=== PATIENT | female | born 1935 | race Caucasian/White ===

== ENCOUNTER 2017-11-28 12:54 | Observation (INO) ==
--- NOTE | 2017-11-28 13:29 | DR.GENAD ---
HPI - PCP Primary Care Physician: Christopher BUTLER - Complaint/Symptoms Chief Complaint:: PATIENT STATED THAT Christopher BUTLER OFFICE CALLED AND TOLD PATIENT COME TO THE ER DUE TO HER WBC BEING LOW SHE BELIEVES THAT IS WHAT THEY TOLD HER WAS GOING ON. PATIENT STATED THAT SHE IS WEAK. - Nurses notes reviewed Nurses Notes Review: Yes - Source History Provided: Patient - Mode of Arrival Mode of Arrival: Ambulatory - Timing Onset of Chief Complaint: 11/28/17 PMH - PMH Past Medical History: Yes Past Medical History: Hypertension Past Surgical History: Yes Surgical History: Hysterectomy, Other - Family History History of Family Medical Conditions: Yes Family Medical History: Cancer, [place], Coronary Artery Disease, Hypertension - Social History Does patient currently use any type of tobacco product: No Have you used tobacco products in the last 12 months: No Type of Tobacco Use: None Does any household member use tobacco: No Alcohol Use: None Do you use any recreational Drugs:: No Lives With: Significant Other Lives Where: Home - infectious screening In the last 2 months have you had wt loss of >10#?: NO Have you had fever, night sweats or hemotysis?: No Have you traveled outside the country in the last 6 months?: No Isolation: Standard ROS - Review of Systems Constitutional: No Symptoms Reported Eyes: No Symptoms Reported ENTM: No Symptoms Reported Respiratoy: No Symptoms Reported Cardiovascular: No Symptoms Reported Gastrointestinal/Abdominal: No Symptoms Reported Genitourinary: No Symptoms Reported Neurological: No Symptoms Reported Musculoskeletal: No Symptoms Reported Integumentary: No Symptoms Reported Hematologic/Lymphatic: No Symptoms Reported Endocrine: No Symptoms Reported Psychiatric: No Symptoms Reported All Other Systems: Reviewed and Negative PE - General Limitations: No Limitations General Appearance: Alert, In No Apparent Distress - Head Head Exam: Normal Inspection - Eyes Eye exam: Normal Appearance - ENT ENT Exam: Normal Exam - Neck Neck Exam: Normal Inspection - Chest Chest Inspection: Normal Inspection - Respiratory Respiratory Exam: Normal Lung Sounds Bilat - Cardiovascular Cardiovascular Exam: Regular Rate, Normal Rhythm, Normal Heart Sounds, +S1, +S2 - Abdominal Exam Abdominal Exam: Normal Inspection, Normal Bowel Sounds, Soft - Extremities Extremities Exam: Normal Inspection - Back Back Exam: Normal Inspection - Neurologic Neurological Exam: Alert, Oriented X3 - Psychiatric Psychiatric Exam: Normal Affect, Normal Mood - Skin Skin Exam: Warm, Dry, Intact, Normal Color - Vital Signs Vitals: Temperature 97.4 F Pulse Rate 77 Respiratory Rate 20 Blood Pressure [Right Arm] 134/63 Blood Pressure [Left Arm] 119/56 Blood Pressure 97/53 O2 Sat by Pulse Oximetry 96 ROR - Labs Reviewed Result Diagrams: 11/28/17 13:43 11/28/17 13:43 - Labs Reviewed Laboratory: WBC 11.9 X10^3/uL (3.6-10.0) H 11/28/17 13:43 RBC 4.91 X10^6/uL (3.5-5.4) 11/28/17 13:43 Hgb 13.8 g/dL (12.0-16.0) 11/28/17 13:43 Hct 40.3 % (36.0-47.0) 11/28/17 13:43 MCV 82.2 fL (80.0-100.0) 11/28/17 13:43 MCH 28.1 pg (27.0-34.0) 11/28/17 13:43 MCHC 34.2 g/dL (33.0-35.0) 11/28/17 13:43 RDW 15.3 % (11.6-16.5) 11/28/17 13:43 Plt Count 215 X10^3/uL (150.0-450.0) 11/28/17 13:43 Plt Count Comment Adequate (ADEQUATE) 11/28/17 13:43 MPV 8.1 fL (7.4-11.0) 11/28/17 13:43 Neut % (Auto) 78.8 % (42.0-75.0) H 11/28/17 13:43 Lymph % (Auto) 10.2 % (21.0-51.0) L 11/28/17 13:43 [place] % (Auto) 10.2 % (0.0-13.0) 11/28/17 13:43 Eos % (Auto) 0.5 % (0.9-2.9) L 11/28/17 13:43 Baso % (Auto) 0.3 % (0.2-1.0) 11/28/17 13:43 Neut # (Auto) 9.4 x10^3/uL (2.2-4.8) H 11/28/17 13:43 Lymph # (Auto) 1.2 X10^3/uL (1.3-2.9) L 11/28/17 13:43 [place] # (Auto) 1.2 x10^3/uL (0.3-0.8) H 11/28/17 13:43 Eos # (Auto) 0.1 x10^3/uL (0.0-0.2) 11/28/17 13:43 Baso # (Auto) 0.0 X10^3/uL (0.0-0.1) 11/28/17 13:43 Absolute Nucleated RBC 0.0 /100WBC 11/28/17 13:43 Total Counted 100 11/28/17 13:43 Neutrophils % (Manual) 82 % (39-76) H 11/28/17 13:43 Band Neutrophils % 2 % (0-10) 11/28/17 13:43 Lymphocytes % (Manual) 5 % (13-43) L 11/28/17 13:43 Monocytes % (Manual) 8 % (4-9) 11/28/17 13:43 Eosinophils % (Manual) 1 % (0-6) 11/28/17 13:43 Atypical Lymphocytes 2 11/28/17 13:43 Plt Morphology Comment Normal (NORMAL) 11/28/17 13:43 RBC Morphology Normal (NORMAL) 11/28/17 13:43 Sodium 125 mmol/L (136-145) L* 11/28/17 13:43 Corrected Sodium TNP 11/28/17 13:43 Potassium 4.8 mmol/L (3.5-5.1) 11/28/17 13:43 Chloride 91 mmol/L (98-107) L 11/28/17 13:43 Carbon Dioxide 23.9 mmol/L (21-32) 11/28/17 13:43 BUN 20 mg/dL (7-18) H 11/28/17 13:43 Creatinine 0.79 mg/dL (0.55-1.02) 11/28/17 13:43 Est GFR (MDRD) Af Amer > 60 (>60) 11/28/17 13:43 Est GFR (MDRD) Non-Af > 60 (>60) 11/28/17 13:43 Glucose 95 mg/dL (65-99) 11/28/17 13:43 Calcium 9.7 mg/dL (8.5-10.1) 11/28/17 13:43 Corrected Calcium 10.5 mg/dL (8.5-10.1) H 11/28/17 13:43 Total Bilirubin 0.70 mg/dL (0.2-1.0) 11/28/17 13:43 AST 23 Units/L (15-37) 11/28/17 13:43 ALT 26 Units/L (12-78) 11/28/17 13:43 Alkaline Phosphatase 70 Units/L (46-116) 11/28/17 13:43 Total Protein 7.1 g/dL (6.4-8.2) 11/28/17 13:43 Albumin 3.0 g/dL (3.4-5.0) L 11/28/17 13:43 Globulin 4.1 g/dL (2.5-4.5) 11/28/17 13:43 Albumin/Globulin Ratio 0.7 Ratio (1.1-2.1) L 11/28/17 13:43 - Diagnosis Discharge Problem: Hyponatremia, Leukocytopenia, unspecified, Leukocytosis - Discharge Plan Disposition: 09 ADMITTED INPATIENT Condition: Stable - Follow ups/Referrals Follow ups/Referrals: Stephen Coe [Primary Care Provider] - 3 days - Instructions Instructions: Hyponatremia, [id number]
[2017-11-28 13:51] LABS: BASOPHILS % (AUTO) 0.3 % (0.2-1.0); EOSINOPHILS # (AUTO) 0.1 x10^3/uL (0.0-0.2); EOSINOPHILS % (AUTO) 0.5 % (0.9-2.9); HEMATOCRIT 40.3 % (36.0-47.0); HEMOGLOBIN 13.8 g/dL (12.0-16.0); LYMPHOCYTES # (AUTO) 1.2 X10^3/uL (1.3-2.9); LYMPHOCYTES % (AUTO) 10.2 % (21.0-51.0); MEAN CORPUSCULAR HEMOGLOBIN 28.1 pg (27.0-34.0); MEAN CORPUSCULAR HGB CONC 34.2 g/dL (33.0-35.0); MEAN CORPUSCULAR VOLUME 82.2 fL (80.0-100.0); MEAN PLATELET VOLUME 8.1 fL (7.4-11.0); MONOCYTES # (AUTO) 1.2 x10^3/uL (0.3-0.8); MONOCYTES % (AUTO) 10.2 % (0.0-13.0); NEUTROPHILS # (AUTO) 9.4 x10^3/uL (2.2-4.8); NEUTROPHILS % (AUTO) 78.8 % (42.0-75.0); PLATELET COUNT 215 X10^3/uL (150.0-450.0); RED BLOOD COUNT 4.91 X10^6/uL (3.5-5.4); RED CELL DISTRIBUTION WIDTH 15.3 % (11.6-16.5); WHITE BLOOD COUNT 11.9 X10^3/uL (3.6-10.0)
[2017-11-28 14:00] LABS: BLOOD UREA NITROGEN 20 mg/dL (7-18); CALCIUM 9.7 mg/dL (8.5-10.1); CARBON DIOXIDE 23.9 mmol/L (21-32); CHLORIDE 91 mmol/L (98-107); CREATININE 0.79 mg/dL (0.55-1.02); eGFR NON BLACK RACES > 60 (>60)
[2017-11-28 14:04] LABS: ALANINE AMINOTRANSFERASE 26 Units/L (12-78); ALKALINE PHOSPHATASE 70 Units/L (46-116); ASPARTATE AMINO TRANSFERASE 23 Units/L (15-37); COR CA(FOR HYPOALB) 10.5 mg/dL (8.5-10.1); TOTAL PROTEIN 7.1 g/dL (6.4-8.2)
[2017-11-28 14:05] LABS: BAND NEUTROPHILS % 2 % (0-10)
[2017-11-28 14:06] LABS: PLATELET MORPHOLOGY COMMENT NORMAL (NORMAL)
[2017-11-28 14:07] LABS: SODIUM 125 mmol/L (136-145)
[2017-11-28] MEDS ORDERED: NS 1000 ML 1,000 ML IV ONE (15:07)
[2017-11-28] MEDS ORDERED: LEVAQUIN PREMIX IV 500 MG 500 MG/100 ML BAG IV ONE ×2 (15:22→16:07)
[2017-11-28] MEDS ORDERED: NS 1000 ML 1,000 ML ONE (15:25)
--- NOTE | 2017-11-28 16:12 | RAD ---
AP chest Indication: Follow-up pneumonia Comparison: 11/20/2017 Findings: Reticular nodular opacities are again suspected within the right mid and upper lung howeve r the previously described nodular opacity is not well visualized. Correlation with nonemergent foll ow-up chest CT is recommended for further evaluation. Calcified lymph nodes are noted within the lef t hilum and left mid lung. No new infiltrate is identified. No pleural effusion or pneumothorax. H eart size unchanged with calcified atherosclerotic disease of the aortic arch. There is elevation the right humeral head consistent with chronic right rotator cuff insufficiency/te ar. Impression: See above. Reported By:
[2017-11-28 19:11] VITALS: BMI 23.3
--- NOTE | 2017-11-28 19:12 | CT ---
CT head without contrast Indication: Pain after fall. Hematoma to the back of the head Technique: Axial images from the skullbase to the vertex without contrast. Coronal and sagittal refor mats are provided. Findings: There is no acute intracranial hemorrhage, mass or mass effect. No extra-axial fluid collec tion or abnormal area of hypoattenuation to suggest infarction seen. Ventricles and sulci are normal. Mild atrophy with ex vacuo ventricular and sulcal enlargement noted. Mild periventricular microangio deanna noted. Review of bone windows shows no osseous lesion. Paranasal sinuses and mastoid air cells are clear where visualized Impression: No acute intracranial hemorrhage Reported By:
[2017-11-28] MEDS: NEURONTIN CAP 300 MG PO SCH (20:25)
[2017-11-28] MEDS: KLONOPIN TAB 0.5 MG PO SCH (20:25)
[2017-11-28] MEDS: ZOCOR TAB 40 MG PO SCH (20:26)
[2017-11-28] MEDS: DUONEB 0.5 MG/3 MG NEB SCH (21:06)
[2017-11-29] MEDS: NS 1000 ML 1,000 ML IV SCH ×5 (02:56→17:40)
[2017-11-29] MEDS: DUONEB 0.5 MG/3 MG NEB SCH ×3 (05:30→20:43)
[2017-11-29 06:38] LABS: BASOPHILS % (AUTO) 0.3 % (0.2-1.0); EOSINOPHILS # (AUTO) 0.1 x10^3/uL (0.0-0.2); EOSINOPHILS % (AUTO) 1.2 % (0.9-2.9); HEMATOCRIT 34.4 % (36.0-47.0); HEMOGLOBIN 11.9 g/dL (12.0-16.0); LYMPHOCYTES # (AUTO) 1.1 X10^3/uL (1.3-2.9); LYMPHOCYTES % (AUTO) 14.9 % (21.0-51.0); MEAN CORPUSCULAR HGB CONC 34.7 g/dL (33.0-35.0); MEAN CORPUSCULAR VOLUME 83.6 fL (80.0-100.0); MEAN PLATELET VOLUME 8.5 fL (7.4-11.0); MONOCYTES # (AUTO) 0.9 x10^3/uL (0.3-0.8); MONOCYTES % (AUTO) 11.1 % (0.0-13.0); NEUTROPHILS # (AUTO) 5.6 x10^3/uL (2.2-4.8); NEUTROPHILS % (AUTO) 72.5 % (42.0-75.0); PLATELET COUNT 143 X10^3/uL (150.0-450.0); RED BLOOD COUNT 4.11 X10^6/uL (3.5-5.4); RED CELL DISTRIBUTION WIDTH 15.1 % (11.6-16.5); WHITE BLOOD COUNT 7.7 X10^3/uL (3.6-10.0)
[2017-11-29] MEDS ORDERED: NS 100 ML IV 100 ML IV ONE ×2 (06:42→09:33)
[2017-11-29 06:51] LABS: ALANINE AMINOTRANSFERASE 20 Units/L (12-78); ALBUMIN 2.4 g/dL (3.4-5.0); ALKALINE PHOSPHATASE 53 Units/L (46-116); ASPARTATE AMINO TRANSFERASE 19 Units/L (15-37); BLOOD UREA NITROGEN 13 mg/dL (7-18); CALCIUM 8.4 mg/dL (8.5-10.1); CARBON DIOXIDE 21.8 mmol/L (21-32); CHLORIDE 101 mmol/L (98-107); COR CA(FOR HYPOALB) 9.7 mg/dL (8.5-10.1); SODIUM 132 mmol/L (136-145); TOTAL PROTEIN 5.8 g/dL (6.4-8.2); eGFR NON BLACK RACES > 60 (>60)
--- NOTE | 2017-11-29 08:07 | CT ---
HISTORY: Subacute cough, pneumonia Study: CT chest with contrast Comparison: No prior CT, chest radiography performed November 28, 2017 and November 17, 2017 Technique: Multiple axial images of the chest were obtained from the thoracic inlet to the upper abdo men after the administration of IV contrast. AEC was utilized. Findings: The thyroid is unremarkable. There is no pericardial effusion observed. Diffuse vascular of alveolar calcifications are noted. The thoracic aorta is normal in its contour without evidence for aneurysm al dilatation or dissection. The central pulmonary arterial system does not demonstrate central fill ing defects to suggest pulmonary emboli. Evaluation of the lung parenchyma demonstrates a background of biapical centrilobular emphysema and bibasilar bronchiectasis. Additionally, there is enhancing bibasilar consolidation most consistent with subsegmental atelectasis. However, there is scattered g round-glass opacity with centrilobular nodules in the lung bases favored to represent superimposed at ypical bronchopneumonia and/or respiratory bronchiolitis. There is a calcified granuloma in the left lower lobe with associated calcified left hilar and mediastinal lymph nodes consistent with previous granulomatous disease. There is no effusion or pneumothorax. No destructive osseous lesions are see n. There is mild wedging of a mid thoracic vertebral body, likely chronic. Stones and/or sludge are n oted within the gallbladder. There are calcified granulomas within the spleen and liver. IMPRESSION: Background of COPD with superimposed bibasilar atypical bronchopneumonia and/or respiratory bronchiol itis. Nonemergent temporal surveillance CT chest without contrast is recommended in approximately 3-6 months given the background of nodularity to document stability/resolution after a trial of therapy and resolution of acute symptoms. Cholelithiasis and/or gallbladder sludge. Other Incidentals as above. Reported By:
[2017-11-29] MEDS ORDERED: FORTAZ or TAZICEF VIAL INJ ONE (09:34)
[2017-11-29] MEDS ORDERED: LEVAQUIN PREMIX IV 750 MG 750 MG/150 ML BAG IV ONE (09:34)
[2017-11-29] MEDS: FORTAZ or TAZICEF VIAL INJ 1 G in NS 100 ML IV + SPIKE MINIBAG* 100 ML IV SCH ×3 (09:39→21:00)
[2017-11-29] MEDS: TENORMIN PO SCH (09:40)
[2017-11-29] MEDS: NORVASC TAB 5 MG PO SCH (09:40)
[2017-11-29] MEDS ORDERED: LEVAQUIN PREMIX IV 750 MG 750 MG/150 ML BAG IV SCH (10:00)
[2017-11-29] MEDS: LEVAQUIN PREMIX IV 500 MG 500 MG/100 ML BAG IV SCH (12:12)
[2017-11-29] MEDS: NEURONTIN CAP 300 MG PO SCH (20:58)
[2017-11-29] MEDS: KLONOPIN TAB 0.5 MG PO SCH (20:58)
[2017-11-29] MEDS: ZOCOR TAB 40 MG PO SCH (20:58)
--- NOTE | 2017-11-29 22:57 | DR.H&P ---
H&P - History & Physical for Day of: H&P Date: 11/28/17 - Chief Complaint Chief Complaint: WEAKNESS, ABDOMINAL PAIN, FALLS, COUGH, CONFUSION - History of Present Illness History of Present Illness: IS A 82 YEAR OLD PATIENT OF OURS WHO PRESENTED TO THE EMERGENCY ROOM FOR COMPLAINTS OF GENERALIZED WEAKNESS, ABDOMINAL PAIN, AND FALLS. PATIENT WAS RECENTLY DISCHARGED FROM THE HOSPITAL FOR TREATMENT OF PNEUMONIA. PATIENTS DAUGHTER REPORTS THAT SHE CONTINUE WITH COUGH AND ALSO CONFUSION AT TIMES. ON ARRIVAL, VITALS WERE 97.4-77-20-96%-97/ 53. LABS WERE OBTAINED. ABNORMAL LAB VALUES INCLUDE THE FOLLOWING: WBC 11.9, SODIUM 125, CHLORIDE 91, BUN 20, ALBUMIN 3.0. A CHEST XRAY WAS OBTAINED AND REVEALED: Reticular nodular opacities are again suspected within the right mid and upper lung however the previously described nodular opacity is not well visualized. Correlation with nonemergent follow-up chest CT is recommended for further evaluation. Calcified lymph nodes are noted within the left hilum and left mid lung. No new infiltrate is identified. No pleural effusion or pneumothorax. Heart size unchanged with calcified atherosclerotic disease of the aortic arch. There is elevation the right humeral head consistent with chronic right rotator cuff insufficiency/tear. A BRAIN CT WAS OBTAINED AND REVEALED: There is no acute intracranial hemorrhage, mass or mass effect. No extra-axial fluid collection or abnormal area of hypoattenuation to suggest infarction seen. Ventricles and sulci are normal. Mild atrophy with ex vacuo ventricular and sulcal enlargement noted. Mild periventricular microangiopathy noted. Review of bone windows shows no osseous lesion. Paranasal sinuses and mastoid air cells are clear where visualized. PATIENT ADMITTED TO THE HOSPITAL FOR FURTHER EVALUATION AND TREATMENT OF HYPONATREMIA, LEUKOCYTOSIS, AND HYPOTENSION. SHE WAS STARTED ON NORMAL SALINE AT 125 ML/HR AND LEVAQUIN 500MG IV DAILY. WE PLAN TO FOLLOW UP WITH AM LABS AND CHEST CT WITH CONTAST AND CONTINUE TO MONITOR PATIENT. - Past Medical History Past Medical History: GERD, Hypertension - Past Surgical History Surgical History: Hysterectomy - Family History Family Medical History: Cancer, Coronary Artery Disease - Social History Does patient currently use any type of tobacco product: No Have you used tobacco products in the last 12 months: No Type of Tobacco Use: None Does any household member use tobacco: No Alcohol Use: None Drug Use: None - Medications Home Medications: codeine Allergy (Verified 11/17/17 13:20) - Review of Systems Constitutional: Weakness Eyes: No Symptoms Reported ENT: No Symptoms Reported Respiratory: Cough, Shortness of Breath Cardiovascular: No Symptoms Reported Gastrointestinal: Abdominal Pain Genitourinary: No Symptoms Reported Musculoskeletal: No Symptoms Reported Skin: No Symptoms Reported Neurological: Weakness - Physical Exam Vital Signs: Temperature 98.1 F Pulse Rate [Right] 77 Pulse Rate 74 Respiratory Rate 18 Blood Pressure [Right Arm] 126/60 Blood Pressure [Left Arm] 119/56 Blood Pressure 97/53 O2 Sat by Pulse Oximetry 95 Oriented: Normal Eyes: Normal Ear: Normal Nose: Normal Throat: Normal Respiratory: Diminished Throughout Cardiovascular: Normal. negative: S3, S4, Murmur : Normal Auscultation: Bowel Sounds: Normal Tenderness: Diffuse, Mild. negative: Rebound, Guarding, Rigidity Skin: Normal Musculoskeletal: Normal Psychiatric: Normal Mood Description: Calm Affect: Normal Speech Pattern: Clear - Assessment/Plan (1) Hyponatremia Status: Acute Plan: NORMAL SALINE AT 25ML/HR, CONTINUE TO MONITOR (2) Leukocytosis Status: Acute Plan: LEVAQUIN 500MG IV DAILY, CONTINUE TO MONITOR (3) Hypotension Qualifiers: Hypotension type: unspecified hypotension type Qualified Code(s): I95.9 - Hypotension, unspecified Status: Acute Plan: NORMAL SALINE AT 125ML/HR, CONTINUE TO MONITOR - Allergies Allergies/Adverse Reactions: Allergies Allergy/AdvReac Type Severity Reaction Status Date / Time codeine Allergy Verified 11/17/17 13:20
[2017-11-30] MEDS: NS 1000 ML 1,000 ML IV SCH ×2 (01:00→10:37)
[2017-11-30 04:05] LABS: BILIRUBIN,URINE NEGATIVE (NEGATIVE); BLOOD/HEMOGLOBIN,URINE NEGATIVE (NEGATIVE); GLUCOSE, URINE NEGATIVE (NEGATIVE); KETONES,URINE NEGATIVE (NEGATIVE); LEUKOCYTE ESTERASE ,URINE NEGATIVE (NEGATIVE); NITRITES,URINE NEGATIVE (NEGATIVE); PROTEIN,URINE NEGATIVE (NEGATIVE); UROBILINOGEN,URINE NORMAL (NORMAL)
[2017-11-30 04:08] LABS: APPEARANCE,URINE CLEAR (CLEAR); COLOR,URINE PALE YELLOW (YELLOW)
[2017-11-30] MEDS: DUONEB 0.5 MG/3 MG NEB SCH ×2 (04:19→05:13)
[2017-11-30] MEDS: FORTAZ or TAZICEF VIAL INJ 1 G in NS 100 ML IV + SPIKE MINIBAG* 100 ML IV SCH (05:00)
[2017-11-30 05:17] LABS: BASOPHILS % (AUTO) 0.5 % (0.2-1.0); EOSINOPHILS # (AUTO) 0.1 x10^3/uL (0.0-0.2); EOSINOPHILS % (AUTO) 1.4 % (0.9-2.9); HEMATOCRIT 33.2 % (36.0-47.0); HEMOGLOBIN 11.6 g/dL (12.0-16.0); LYMPHOCYTES # (AUTO) 1.3 X10^3/uL (1.3-2.9); LYMPHOCYTES % (AUTO) 17.9 % (21.0-51.0); MEAN CORPUSCULAR HEMOGLOBIN 29.1 pg (27.0-34.0); MEAN CORPUSCULAR HGB CONC 34.9 g/dL (33.0-35.0); MEAN CORPUSCULAR VOLUME 83.4 fL (80.0-100.0); MEAN PLATELET VOLUME 8.5 fL (7.4-11.0); MONOCYTES # (AUTO) 0.8 x10^3/uL (0.3-0.8); MONOCYTES % (AUTO) 11.5 % (0.0-13.0); NEUTROPHILS # (AUTO) 4.8 x10^3/uL (2.2-4.8); NEUTROPHILS % (AUTO) 68.7 % (42.0-75.0); PLATELET COUNT 129 X10^3/uL (150.0-450.0); RED BLOOD COUNT 3.98 X10^6/uL (3.5-5.4); RED CELL DISTRIBUTION WIDTH 14.9 % (11.6-16.5)
[2017-11-30 05:29] LABS: ALANINE AMINOTRANSFERASE 18 Units/L (12-78); ALBUMIN 2.3 g/dL (3.4-5.0); ALKALINE PHOSPHATASE 53 Units/L (46-116); ASPARTATE AMINO TRANSFERASE 19 Units/L (15-37); BLOOD UREA NITROGEN 10 mg/dL (7-18); CALCIUM 8.3 mg/dL (8.5-10.1); CHLORIDE 105 mmol/L (98-107); COR CA(FOR HYPOALB) 9.7 mg/dL (8.5-10.1); CREATININE 0.61 mg/dL (0.55-1.02); SODIUM 137 mmol/L (136-145); TOTAL PROTEIN 5.5 g/dL (6.4-8.2); eGFR NON BLACK RACES > 60 (>60)
--- NOTE | 2017-11-30 06:39 | RAD ---
Examination: Portable AP chest History: SOB Comparison 11/28/2017 Findings: Continued normal heart size with arteriosclerotic aorta and degenerative calcification of m itral annulus. Areas of subsegmental atelectasis left lung base. No definite consolidation, pneumotho rax or large pleural effusion. Impression: Findings of atelectasis at the left base. Recent CT description of bronchopneumonia not d efinitely identified on this portable examination. Reported By:
[2017-11-30 07:43] VITALS: BP 133/62
[2017-11-30] MEDS: LEVAQUIN PREMIX IV 500 MG 500 MG/100 ML BAG IV SCH (08:23)
[2017-11-30] MEDS: NORVASC TAB 5 MG PO SCH (08:24)
[2017-11-30] MEDS: TENORMIN PO SCH (08:24)
[2017-11-30] MEDS ORDERED: MILK OF MAGNESIA PO SCH (09:00)
--- NOTE | 2017-11-30 19:00 | PCM.PROG ---
Progress Note - Progress Note for Day of Date of Exam: 11/29/17 - Subjective Subjective: WAS AMITTED FOR HYPONATREMIA, LEUKOCYTOSIS, AND HYPOTENSION. TODAY, SHE IS ALERT AND ORIENTED, SITTING UP IN BED ON MORNING ROUNDS. SHE IS NOTED WITH COMPLAINTS OF COUGH, SHORTNESS OF BREATH, AND GENERALIZED WEAKNESS. ON EXAMINATION, HEART IS REGULAR IN RATE AND RHYTHM. BILATERAL LUNG ARE NOTED WITH DIMINISHED LUNG SOUNDS THROUGHOUT. ABDOMEN IS ROUND, SOFT, AND NON-TENDER WITH NORMAL BOWEL SOUNDS NOTED IN ALL QUADRANTS. HER VITALS THIS MORNING ARE 97.8-80-20-95%NC-129/58. LABS WERE OBTAINED. ABNORMAL LAB VALUES INCLUDE THE FOLLOWING: HGB 11.9, HCT 34.4, SODIUM 132, CALCIUM 8.4, TOTAL PROTEIN 5.8, ALBUMIN 2.4. A CHEST CT WAS OBTAINED TODAY AND REVEALED: Background of COPD with superimposed bibasilar atypical bronchopneumonia and/or respiratory bronchiolitis. Nonemergent temporal surveillance CT chest without contrast is recommended in approximately 3-6 months given the background of nodularity to document stability/resolution after a trial of therapy and resolution of acute symptoms. Cholelithiasis and/ or gallbladder sludge. TODAY, WE WILL START FORTAZ IV AND LEVAQUIN IV. OTHERWISE , WE WILL CONTINUE WITH CURRENT PLAN OF CARE. WE PLAN TO FOLLOW UP WITH AM LABS AND CHEST XRAY AND CONTINUE TO MONITOR PATIENT. - Past Medical Family Social History Past Med/Fam/Surg Hx: No changes since H&P Allergies: Allergies codeine Allergy (Verified 11/17/17 13:20) - Review of Systems ROS: No change since H&P - Vital Signs and I&O's Vital Signs: Temperature 97.7 F Pulse Rate [Right] 80 Pulse Rate 74 Respiratory Rate 20 Blood Pressure [Right Arm] 133/62 Blood Pressure [Left Arm] 119/56 Blood Pressure 97/53 O2 Sat by Pulse Oximetry 92 Intake and Output: Intake & Output 11/28/17 11/29/17 11/30/17 12/01/17 11:59 11:59 11:59 11:59 Intake Total 220 / 220 3062 / 3062 Balance 220 / 220 3062 / 3062 - Physical Exam Oriented: Normal Eyes: Normal Ear: Normal Nose: Normal Throat: Normal Respiratory: Generalized, Diminished Cardiovascular: Normal. negative: S3, S4, Murmur : Normal Auscultation: Bowel Sounds: Normal Palpation: Normal Tenderness: Normal. negative: Rebound, Guarding, Rigidity Skin: Normal Musculoskeletal: Normal Psychiatric: Normal Mood Description: Calm Affect: Normal Speech Pattern: Clear - Laboratory and Diagnostics Result Diagrams: 11/30/17 04:45 11/30/17 04:45 Labs: 11/29/17 01:06 Sputum - Expectorated Sputum Sputum Culture - Preliminary 11/29/17 01:06 Sputum - Expectorated Sputum - Final Laboratory WBC 7.0 X10^3/uL (3.6-10.0) 11/30/17 04:45 RBC 3.98 X10^6/uL (3.5-5.4) 11/30/17 04:45 Hgb 11.6 g/dL (12.0-16.0) L 11/30/17 04:45 Hct 33.2 % (36.0-47.0) L 11/30/17 04:45 MCV 83.4 fL (80.0-100.0) 11/30/17 04:45 MCH 29.1 pg (27.0-34.0) 11/30/17 04:45 MCHC 34.9 g/dL (33.0-35.0) 11/30/17 04:45 RDW 14.9 % (11.6-16.5) 11/30/17 04:45 Plt Count 129 X10^3/uL (150.0-450.0) L 11/30/17 04:45 Plt Count Comment Adequate (ADEQUATE) 11/28/17 13:43 MPV 8.5 fL (7.4-11.0) 11/30/17 04:45 Neut % (Auto) 68.7 % (42.0-75.0) 11/30/17 04:45 Lymph % (Auto) 17.9 % (21.0-51.0) L 11/30/17 04:45 [place] % (Auto) 11.5 % (0.0-13.0) 11/30/17 04:45 Eos % (Auto) 1.4 % (0.9-2.9) 11/30/17 04:45 Baso % (Auto) 0.5 % (0.2-1.0) 11/30/17 04:45 Neut # (Auto) 4.8 x10^3/uL (2.2-4.8) 11/30/17 04:45 Lymph # (Auto) 1.3 X10^3/uL (1.3-2.9) 11/30/17 04:45 [place] # (Auto) 0.8 x10^3/uL (0.3-0.8) 11/30/17 04:45 Eos # (Auto) 0.1 x10^3/uL (0.0-0.2) 11/30/17 04:45 Baso # (Auto) 0.0 X10^3/uL (0.0-0.1) 11/30/17 04:45 Absolute Nucleated RBC 0.0 /100WBC 11/30/17 04:45 Total Counted 100 11/28/17 13:43 Neutrophils % (Manual) 82 % (39-76) H 11/28/17 13:43 Band Neutrophils % 2 % (0-10) 11/28/17 13:43 Lymphocytes % (Manual) 5 % (13-43) L 11/28/17 13:43 Monocytes % (Manual) 8 % (4-9) 11/28/17 13:43 Eosinophils % (Manual) 1 % (0-6) 11/28/17 13:43 Atypical Lymphocytes 2 11/28/17 13:43 Plt Morphology Comment Normal (NORMAL) 11/28/17 13:43 RBC Morphology Normal (NORMAL) 11/28/17 13:43 Sodium 137 mmol/L (136-145) 11/30/17 04:45 Corrected Sodium TNP 11/30/17 04:45 Potassium 3.6 mmol/L (3.5-5.1) 11/30/17 04:45 Chloride 105 mmol/L (98-107) 11/30/17 04:45 Carbon Dioxide 22.0 mmol/L (21-32) 11/30/17 04:45 BUN 10 mg/dL (7-18) 11/30/17 04:45 Creatinine 0.61 mg/dL (0.55-1.02) 11/30/17 04:45 Est GFR (MDRD) Af Amer > 60 (>60) 11/30/17 04:45 Est GFR (MDRD) Non-Af > 60 (>60) 11/30/17 04:45 Glucose 89 mg/dL (65-99) 11/30/17 04:45 Calcium 8.3 mg/dL (8.5-10.1) L 11/30/17 04:45 Corrected Calcium 9.7 mg/dL (8.5-10.1) 11/30/17 04:45 Total Bilirubin 0.30 mg/dL (0.2-1.0) 11/30/17 04:45 AST 19 Units/L (15-37) 11/30/17 04:45 ALT 18 Units/L (12-78) 11/30/17 04:45 Alkaline Phosphatase 53 Units/L (46-116) 11/30/17 04:45 Total Protein 5.5 g/dL (6.4-8.2) L 11/30/17 04:45 Albumin 2.3 g/dL (3.4-5.0) L 11/30/17 04:45 Globulin 3.2 g/dL (2.5-4.5) 11/30/17 04:45 Albumin/Globulin Ratio 0.7 Ratio (1.1-2.1) L 11/30/17 04:45 Specimen Type Clean catch urine 11/30/17 03:56 Urine Color Pale yellow (YELLOW) 11/30/17 03:56 Urine Appearance Clear (CLEAR) 11/30/17 03:56 Urine pH 6.0 (5.0 - 8.0) 11/30/17 03:56 Ur Specific [place] 1.010 (1.000-1.030) 11/30/17 03:56 Urine Protein Negative (NEGATIVE) 11/30/17 03:56 Urine Glucose (UA) Negative (NEGATIVE) 11/30/17 03:56 Urine Ketones Negative (NEGATIVE) 11/30/17 03:56 Urine Occult Blood Negative (NEGATIVE) 11/30/17 03:56 Urine Nitrite Negative (NEGATIVE) 11/30/17 03:56 Urine Bilirubin Negative (NEGATIVE) 11/30/17 03:56 Urine Urobilinogen Normal (NORMAL) 11/30/17 03:56 Ur Leukocyte Esterase Negative (NEGATIVE) 11/30/17 03:56 - Plan (1) Hyponatremia Status: Acute Plan: NORMAL SALINE AT 125ML/HR, CONTINUE TO MONITOR (2) Bronchopneumonia Status: Acute Plan: FORTAZ IV, LEVAQUIN IV, RESPIRATORY TREATMENTS, CONTINUE TO MONITOR (3) Leukocytosis Status: Acute Qualifiers: Leukocytosis type: unspecified Qualified Code(s): D72.829 - Elevated white blood cell count, unspecified Plan: LEVAQUIN 500MG IV DAILY, CONTINUE TO MONITOR (4) Hypotension Status: Acute Qualifiers: Hypotension type: unspecified hypotension type Qualified Code(s): I95.9 - Hypotension, unspecified Plan: NORMAL SALINE AT 125ML/HR, CONTINUE TO MONITOR
[2017-11-30] MEDS ORDERED: COLACE CAP 100 MG PO SCH (21:00)
--- NOTE | 2017-12-10 19:35 | DR.CARTERD ---
- Discharge Summary for: Discharge Summary for Date of:: 11/30/17 - Admission Date Date of Admission: 11/28/17 - Admission Diagnoses Admission Diagnosis: (1) Hyponatremia (2) Abdominal pain (3) Leukocytosis (4) Hypotension - Discharge Date Discharge Date: 11/30/17 - Discharge Diagnoses Discharge Diagnosis: (1) Hyponatremia (2) Abdominal pain (3) Bronchopneumonia (4) Leukocytosis (5) Hypotension - Hospital Course Hospital Course: DAY ONE, MS. ESCOBAR IS A 82 YEAR OLD PATIENT OF OURS WHO PRESENTED TO THE EMERGENCY ROOM FOR COMPLAINTS OF GENERALIZED WEAKNESS, ABDOMINAL PAIN, AND FALLS. PATIENT WAS RECENTLY DISCHARGED FROM THE HOSPITAL FOR TREATMENT OF PNEUMONIA. PATIENTS DAUGHTER REPORTS THAT SHE CONTINUE WITH COUGH AND ALSO CONFUSION AT TIMES. ON ARRIVAL, VITALS WERE 97.4-77-20-96%-97/53. LABS WERE OBTAINED. ABNORMAL LAB VALUES INCLUDE THE FOLLOWING: WBC 11.9, SODIUM 125, CHLORIDE 91, BUN 20, ALBUMIN 3.0. 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 A BRAIN CT WAS OBTAINED AND REVEALED: NO ACUTE INTRACRANIAL HEMORRHAGE. PATIENT ADMITTED TO THE HOSPITAL FOR FURTHER EVALUATION AND TREATMENT OF HYPONATREMIA, LEUKOCYTOSIS, AND HYPOTENSION. SHE WAS STARTED ON NORMAL SALINE AT 125 ML/HR AND LEVAQUIN 500MG IV DAILY. WE CONTINUED TO MONITOR PATIENT. DAY TWO, MS. ESCOBAR CONTINUED TREATMENT FOR HYPONATREMIA, LEUKOCYTOSIS, AND HYPOTENSION. SHE WAS ALERT AND ORIENTED, SITTING UP IN BED ON MORNING ROUNDS. SHE WAS NOTED WITH COMPLAINTS OF COUGH, SHORTNESS OF BREATH, AND GENERALIZED WEAKNESS. ON EXAMINATION, HEART WAS REGULAR IN RATE AND RHYTHM. BILATERAL LUNGS WERE NOTED WITH DIMINISHED LUNG SOUNDS THROUGHOUT. ABDOMEN WAS ROUND, SOFT, AND NON-TENDER WITH NORMAL BOWEL SOUNDS NOTED IN ALL QUADRANTS. HER VITALS WERE 97.8 -80-20-95%NC-129/58. LABS WERE OBTAINED. ABNORMAL LAB VALUES INCLUDED THE FOLLOWING: HGB 11.9, HCT 34.4, SODIUM 132, CALCIUM 8.4, TOTAL PROTEIN 5.8, ALBUMIN 2.4. A CHEST CT WAS OBTAINED AND REVEALED: BACKGROUND OF COPD WITH SUPERIMPOSED BIBASILAR ATYPICAL BRONCHOPNEUMONIA AND/OR RESPIRATORY BRONCHIOLITIS; NONEMERGENT TEMPORAL SURVEILLANCE CT CHEST WITHOUT CONTRAST IS RECOMMENDED IN APPROX 3-6 MONTHS GIVEN THE BACKGROUND OF NODULARITY TO DOCUMENT STABILITY/RESOLUTION AFTER A TRIAL OF THERAPY AND RESOLUTION OF ACUTE SYMPTOMS; CHOLELITHIASIS AND/OR GALLBLADDER SLUDGE. WE STARTED FORTAZ IV AND LEVAQUIN IV AND CONTINUED TO MONITOR PATIENT. DAY THREE, PATIENT REPORTED SHE WAS FEELING BETTER. SHE DENIED ABDOMINAL PAIN OR SHORTNESS OF BREATH. COUGH WAS INTERMITTENT, NON-PRODUCTIVE. VITAL SIGNS STABLE. LABS WNL. FINAL SPUTUM CULTURE NEGATIVE FOR GROWTH. WE PLANNED FOR DISCHARGE. INSTRUCTIONS FOR MEDICATIONS AND FOLLOW UP WERE DISCUSSED WITH PATIENT AND FAMILY, BOTH VOICED UNDERSTANDING. PATIENT DISCHARGED HOME IN STABLE CONDITION WITH FAMILY. - Discharge Medications Discharge Medications: Home Medication List levofloxacin [Levaquin] 500 mg PO DAILY #10 tab 11/30/17 [Rx] Prescriptions: levofloxacin [Levaquin] Stephen Coe Home medications amlodipine [Norvasc] 2.5 mg PO DAILY 11/17/17 atenolol 50 mg PO DAILY 11/17/17 clonazepam 0.5 mg PO HS 11/17/17 gabapentin [Neurontin] 300 mg PO HS 11/17/17 simvastatin 80 mg PO HS 11/17/17 hydrocodone-chlorpheniramine 5 ml PO Q12H PRN #100 ml 11/20/17 - Discharge Disposition Discharge Disposition: PATIENT IS TO FOLLOW UP IN OUR OFFICE IN ONE WEEK.
== END 2017-11-30 10:35 | disposition home or self-care (01) | DRG 640 ==
LOC: ER 13:02 → INTOOBSV 16:03 → MED/SURG 16:03
PROVIDERS: ADMIT Internal Medicine; ATTEND Internal Medicine
DX: E87.1 Hypo-osmolality and hyponatremia; Y92.89 Other specified places as the place of occurrence of the external cause; J44.9 Chronic obstructive pulmonary disease, unspecified; R53.1 Weakness; K21.9 Gastro-esophageal reflux disease without esophagitis; J18.0 Bronchopneumonia, unspecified organism; W18.39XA Other fall on same level, initial encounter; R10.84 Generalized abdominal pain; S00.83XA Contusion of other part of head, initial encounter; R06.02 Shortness of breath; I95.89 Other hypotension; D72.818 Other decreased white blood cell count; E87.6 Hypokalemia; I10 Essential (primary) hypertension; D72.828 Other elevated white blood cell count; Z79.899 Other long term (current) drug therapy
CPT/HCPCS: 36415; 70450; 71010; 71045; 71260; 80053; 81003; 85025; 87070; 87205; 94640; 94669; 94760; 96365; 96367; 99283; 99284; A4222; G0378; J0713; J1956; J7030; J7050; J7620